=== PATIENT | female | born 1970 | race Caucasian/White ===

== ENCOUNTER 2025-03-19 10:28 | Day surgery (SDC) | payer BC ==
[2025-03-18 12:33] LABS: MEAN PLATELET VOLUME 7.0 FL (7.4-10.4); RED CELL DISTRIBUTION WIDTH 13.0 % (11.5-14.5)
[2025-03-18 12:43] LABS: CREATININE 0.64 MG/DL (0.40-0.90); TOTAL CARBON DIOXIDE 29.3 MMOL/L (24-32); eGFR > 90 ML/MIN
[2025-03-18 12:47] LABS: APTT 27 SECONDS (22-32); INR 1.0 INR
[~2025-03-19] VITALS: Ht 160 cm; Wt 91.3 kg
[2025-03-19] VITALS (12 sets, daily range): BP systolic 102–157; BP diastolic 62–83; PULSE 69–76; RESP 10–17; TEMP 97.8; O2SAT 92–96
[~2025-03-19 10:28] MED LIST: AMOX125T; NO HOME MEDS
--- NOTE | 2025-03-19 10:47 | ELECTROCARDIOGRAPH REPORT ---
[facility] Test Date: 2025-03-19 Test Time: 10:46:32 Pat Name: HECTOR PAUL Department: [facility] Patient ID: [facility]-[id number] Room: Gender: F Manager Performance Improvement: ADRIAN : 1970 Requested By: LUPIS BARBOUR Order Number: [id number] Reading MD: Dr. KAN Barbour Measurements Intervals [place] Rate: 72 P: 45 [place]: 129 QRS: 96 QRSD: 97 T: 61 QT: 387 QTc: 424 Interpretive Statements Sinus rhythm Borderline right axis deviation Electronically Signed On 03-20-2025 15:39:[address] KAN Barbour Please click the below link to view image of tracing.
[2025-03-19] MEDS ORDERED: EMPA25TA PO (11:05)
[2025-03-19] MEDS ORDERED: PANT40TA54 PO (11:05)
[2025-03-19] MEDS ORDERED: MECO10005 PO (11:05)
[2025-03-19] MEDS ORDERED: LORA-512 PO (11:05)
[2025-03-19] MEDS ORDERED: VITD400T PO (11:05)
[2025-03-19] MEDS ORDERED: METF-1203 PO (11:05)
[2025-03-19] MEDS ORDERED: iohexol 350 MG/ML 50ML vial IV ONE (11:43)
[2025-03-19] MEDS ORDERED: midazolam 1 mg/ML 2ml injection ONE ×2 (11:43→12:39)
[2025-03-19] MEDS ORDERED: fentaNYL/PF 50MCG/1 ML 2ML syringe ONE (11:43)
[2025-03-19] MEDS ORDERED: heparin 1,000unit/ml 10ml vial 10 ML ONE (11:43)
[2025-03-19] MEDS ORDERED: verapamil 2.5 mg/ml inj IV ONE (11:43)
[2025-03-19] MEDS ORDERED: nitroGLYCERIN 500mcg/5mL D5W 5 ML IV ONE (11:44)
[2025-03-19] MEDS ORDERED: LIDOcaine 1% (10mg/ml) 2ml vial ONE (12:31)
[2025-03-19 12:57] LABS: ISTAT HGB ART 14.3 g/dl (12.0-16.0); ISTAT Hct ART 42 %PCV (35-45); ISTAT O2 SATURATION ARTERIAL 92 % (95-98); ISTAT SOURCE ART
[2025-03-19 13:17] LABS: ISTAT HGB MIX 13.9 g/dl (12.0-16.0); ISTAT Hct MIX 41 %PCV (35-45); ISTAT O2 SATURATION MIX VENOUS 67 % (60-80); ISTAT SOURCE VEN
[2025-03-19] MEDS ORDERED: HYDROcodone/acetaminophen 10/325mg tab PO PRN (13:40)
[2025-03-19] MEDS ORDERED: normal saline 1000ml 1,000 ML IV SCH (13:40)
[2025-03-19] MEDS ORDERED: HYDROcodone/acetaminophen 5mg/325mg tablet PO PRN (13:40)
--- NOTE | 2025-03-19 14:06 | CARDIOLOGY REPORT ---
DATE OF SERVICE: 03/19/2025 DICTATING PHYSICIAN: KAN Reyes MD CARDIAC CATHETERIZATION GENDER: Female. AGE: 54 years. HEIGHT: 160 cm. WEIGHT: 91.3 kg. BODY SURFACE AREA: 1.94 m2. INDICATION: The patient is a 54-year-old postmenopausal female with diabetes, hypertension, hyperlipidemia, chest pain, shortness of breath, sleep apnea, on CPAP. She has been having exertional fatigue and shortness of breath and underwent myocardial perfusion scan, found to have distal infrascapular reversibility. After talking risks, benefits and alternative options, the patient prefers to proceed with definitive coronary angiography. Risks, benefits and alternative options discussed, informed consent obtained. PROCEDURE TECHNIQUE: The patient underwent right heart catheterization from right antecubital approach, a 6-[place] right antecubital sheath. Post-procedure access site hemostasis secured with manual compression. The patient underwent left heart catheterization from right radial approach, a 6-[place] right radial sheath. Post-procedure access site hemostasis secured with right radial band. The patient tolerated the procedure well. Complications, none. PROCEDURES DONE: * Ultrasound-guided right radial artery visualization and access. * Right heart catheterization. * Left heart catheterization. * LVG. * Coronary cineangiography. * Conscious sedation time of 30 minutes. FINDINGS: HEMODYNAMICS: Aortic systolic 126, diastolic 73, mean 98 mmHg. LVEDP of 9 mmHg with no significant gradient across the aortic valve. Right atrial lead 5 mmHg, RV 25/5 mmHg, PA 21/10 mmHg. Pulmonary capillary wedge pressure of 5 mmHg. Aortic oxygen saturation 92%. Pulmonary artery oxygen 67%. Cardiac output by thermodilution method is 5.67 L/min. Cardiac index of 2.93 L/min/m2. LEFT VENTRICULOGRAM: Overall left ventricular systolic function is normal with LV ejection fraction of about 70%. CORONARY CINEANGIOGRAPHY: Left main coronary artery is a large caliber arising from the left aortic sinus and divides into 3 divisions with mild luminal irregularities. LAD is a medium caliber vessel arising at the bifurcation of the left main coronary artery and courses through the anterior interventricular groove and ends up by wrapping around the apex. LAD diagonal 1 is 2.25 mm caliber with minimal luminal irregularities. Diagonal 2 is 2 mm caliber vessel with minimal luminal irregularities and ramus is 2.25 mm with mild luminal irregularities which divides in 2 divisions with minimal luminal irregularities. Circumflex artery is a medium caliber vessel arising at the bifurcation of the left main coronary and courses through the left AV groove with mild luminal irregularities. OM1 is 3.25 mm caliber with minimal luminal irregularities, OM2 is 2.5 mm with mild luminal irregularities, OM3 is 2 mm caliber with mild luminal irregularities. Right coronary artery is a medium caliber dominant vessel arising at the aortic sinus and courses through the AV groove and ends at the posterior crux by dividing into the PDA and a posterolateral branch. RCA and its branches have mild luminal irregularities. IMPRESSION: A 54-year-old female with LV ejection fraction of 70%. LVEDP of 9 mmHg with no significant gradient across the aortic valve. Pulmonary capillary wedge pressure was 5 mmHg. PA pressure of 21/10 mmHg. Left main normal. LAD diagonal with minimal disease. Circumflex with minimal disease. RCA with minimal disease. RECOMMENDATIONS: Recommend continued aggressive coronary risk factor modification, namely low-fat, low-cholesterol diet, maintaining ideal body weight, keeping LDL less than 55 mg, regular exercise program. KAN Reyes MD TID: [id number] RECEIPT: [id number] BEBETO/GRACIELA cc: Jorge Fernandes MD
== END 2025-03-19 17:15 | disposition home or self-care (01) ==
LOC: SSTAY O 10:28
PROVIDERS: ATTEND Internal Medicine Cardiovascular Disease
DX: R94.39 Abnormal result of other cardiovascular function study (principal); I25.10 Atherosclerotic heart disease of native coronary artery without angina pectoris; I10 Essential (primary) hypertension; E11.9 Type 2 diabetes mellitus without complications; E78.5 Hyperlipidemia, unspecified; G47.39 Other sleep apnea; Z79.84 Long term (current) use of oral hypoglycemic drugs; Z79.899 Other long term (current) drug therapy; Z90.49 Acquired absence of other specified parts of digestive tract; Z90.710 Acquired absence of both cervix and uterus; Z98.51 Tubal ligation status; Z82.49 Family history of ischemic heart disease and other diseases of the circulatory system
CPT/HCPCS: 36415; 80048; 82803; 85014; 85025; 85610; 85730; 93005; 93460; 99152; 99153; J1644; J2003; J2250; J3010; J3490; J7030; Q0163; Q9967; 76937; A6258; C1725; C1751; C1894